=== PATIENT | female | born 1970 | race Caucasian/White ===

== ENCOUNTER 2020-08-23 16:16 | Emergency (ER) | payer OTHER ==
[2020-08-23 18:02] LABS: BASOPHIL 0.5 % (0-2); EOSINOPHIL 2.3 % (0-5); HCT 46.3 % (37.0-47.0); HGB 14.6 g/dl (12.5-16.0); MCH 26.9 pg (25.0-31.0); MCHC 31.5 g/dL (32.0-36.0); MCV 85.3 fL (78.0-100.0); MONOCYTE 4.5 % (0-12); MPV 12.8 fL (6.0-9.5); NEUTROPHIL 71.4 % (41-80); NRBC 0; PLT 237 K/uL (150-400); RBC 5.43 M/uL (4.20-5.40); RDW 14.6 % (11.5-14.0)
[2020-08-23 18:13] LABS: INR 1.01 (0.9-1.2); PROTHROMBIN TIME 12.6 SECONDS (11.4-13.6); PTT 26.9 SECONDS (22.2-34.7)
[2020-08-23 18:22] LABS: ALBUMIN 3.9 g/dL (3.4-5.0); BILIRUBIN - TOTAL 0.3 mg/dL (0.2-1.0); BUN/CREAT RATIO (CALC) 39.6 RATIO; CREATININE 0.53 mg/dL (0.51-0.95); GLOBULIN (CALCULATION) 4.2 g/dL; POTASSIUM 4.2 mmol/L (3.5-5.1); TOTAL PROTEIN 8.1 g/dL (6.4-8.2)
[2020-08-23] MEDS ORDERED: ACTOS30 MG PO (19:51)
[2020-08-23] MEDS ORDERED: PRINIVIL10 MG PO (19:51)
== END 2020-08-23 20:19 | disposition home or self-care (01) ==
LOC: FER 16:16
PROVIDERS: Emergency Medicine
DX: I10 Essential (primary) hypertension (principal); E11.9 Type 2 diabetes mellitus without complications
CPT/HCPCS: 36415; 71045; 80053; 84484; 85025; 85610; 85730; 93005

== ENCOUNTER 2020-12-31 22:26 | Emergency (ER) | payer OTHER ==
[~2020-12-31 22:26] MED LIST: ACTOS30 MG PO; PRINIVIL10 MG PO
[2020-12-31 23:39] LABS: BASOPHIL 0.5 % (0-2); EOSINOPHIL 1.1 % (0-5); HCT 42.6 % (37.0-47.0); HGB 13.6 g/dl (12.5-16.0); MCH 27.3 pg (25.0-31.0); MCHC 31.9 g/dL (32.0-36.0); MCV 85.5 fL (78.0-100.0); MONOCYTE 5.5 % (0-12); MPV 12.8 fL (6.0-9.5); NEUTROPHIL 69.6 % (41-80); NRBC 0; PLT 293 K/uL (150-400); RBC 4.98 M/uL (4.20-5.40); RDW 13.8 % (11.5-14.0); WBC 11.4 K/uL (4.0-10.5)
[2021-01-01 00:03] LABS: ALBUMIN 4.1 g/dL (3.4-5.0); BILIRUBIN - TOTAL 0.3 mg/dL (0.2-1.0); BUN/CREAT RATIO (CALC) 22.3 RATIO; CREATININE 1.03 mg/dL (0.51-0.95); FT4 (FREE T4) 0.8 ng/dL (0.76-1.46); GLOBULIN (CALCULATION) 4.1 g/dL; POTASSIUM 4.1 mmol/L (3.5-5.1); TOTAL PROTEIN 8.2 g/dL (6.4-8.2)
[2021-01-01 00:09] LABS: LACTIC ACID 1.7 mmol/L (0.4-1.9)
[2021-01-01 01:34] LABS: PRO-BNP 90 pg/mL (<125)
[2021-01-01 01:52] LABS: MONOSPOT (MONONUCLEOSIS) NEGATIVE (NEGATIVE)
[2021-01-01] MEDS ORDERED: VIBRAMYCIN100 MG PO (02:28)
[2021-01-02 16:09] LABS: LYME IGG/IGM AB <0.91 ISR (0.00-0.90)
== END 2021-01-01 02:45 | disposition home or self-care (01) ==
LOC: FER 22:26
PROVIDERS: Emergency Medicine Emergency Medical Services
DX: R07.89 Other chest pain (principal); R53.81 Other malaise; R53.83 Other fatigue; R06.02 Shortness of breath; R00.2 Palpitations; E11.9 Type 2 diabetes mellitus without complications; I10 Essential (primary) hypertension
CPT/HCPCS: 36415; 71045; 80053; 82550; 83605; 83690; 83880; 84439; 84443; 84484; 85025; 86308; 86618; 86757; 93005; J1885; J7030